=== PATIENT | male | born 1945 | race Hispanic/Latino ===

== ENCOUNTER → 2023-09-16 | Outpatient (CLI) | payer OTHER ==
[~2023-09-16] MED LIST: ASPI-1197 PO; ATOR20TA65 PO; CALC-1104 PO; CHOL400T33 PO; DOCU-280 PO; GLUC-145 PO; L.AC1CAP6 PO; MILK175C5 PO; UBID100C10 PO
== END | disposition home or self-care (01) ==
LOC: RAH 09:18
PROVIDERS: ATTEND Family Medicine
DX: M51.16 Intervertebral disc disorders with radiculopathy, lumbar region (principal); M48.07 Spinal stenosis, lumbosacral region
CPT/HCPCS: 72148

== ENCOUNTER 2024-01-06 09:05 | Day surgery (SDC) | payer OTHER ==
[2024-01-06] VITALS (11 sets, daily range): BP systolic 100–120; BP diastolic 62–75; PULSE 58–68; RESP 14–17
[~2024-01-06] VITALS: Ht 162.6 cm; Wt 75.7 kg
[~2024-01-06 09:05] MED LIST changes: +0.9%NACL 1000ML 1,000 ML IV ONE; +BIFI4CAP PO; -CALC-1104 PO; +CHOL200074 PO; -CHOL400T33 PO; +FOLI0.8C PO; -GLUC-145 PO; -L.AC1CAP6 PO; -MILK175C5 PO; +MULT-685 PO; +PANT40TA54 PO; +TAMS-1 PO; -UBID100C10 PO; +ZOLP5TAB8 PO
[2024-01-06] MEDS ORDERED: PROPOFOL 10 MG/ML 20ML VIAL IV ONE (10:25)
[2024-01-06] MEDS ORDERED: LIDOCAINE HCL 400MG/20ML VIAL ONE ×2 (10:26→10:27)
== END 2024-01-06 12:10 | disposition home or self-care (01) ==
LOC: DAH 09:05 → ENDO 09:05
PROVIDERS: ATTEND Internal Medicine Gastroenterology
DX: R19.4 Change in bowel habit (principal); R10.13 Epigastric pain; K62.1 Rectal polyp; K57.30 Diverticulosis of large intestine without perforation or abscess without bleeding; K44.9 Diaphragmatic hernia without obstruction or gangrene; K29.50 Unspecified chronic gastritis without bleeding; K31.89 Other diseases of stomach and duodenum; D50.9 Iron deficiency anemia, unspecified; G47.30 Sleep apnea, unspecified; F41.9 Anxiety disorder, unspecified; E78.00 Pure hypercholesterolemia, unspecified; M19.90 Unspecified osteoarthritis, unspecified site; Z80.0 Family history of malignant neoplasm of digestive organs; Z79.899 Other long term (current) drug therapy
CPT/HCPCS: 43239; 45380; A4606; J2704; J3490; J7030; A4215; A4221; A4222; A4223; A4620; A4663; A7002